=== PATIENT | female | born 1950 | race Caucasian/White ===

== ENCOUNTER 2019-02-14 15:26 | Outpatient (CLI) | payer MEDICARE ==
--- NOTE | 2019-02-14 15:59 | BD ---
DEXA bone density examination HISTORY: 68-year-old postmenopausal female for screening COMPARISON: None FINDINGS: L1--bone mineral density 1.265 g/sq cm; T score 2.5 L2--bone mineral density 1.351 g/sq cm; T score 2.9 L3--bone mineral density 1.318 g/sq cm; T score 2.1 L4--bone mineral density 1.242 g/sq cm; T score 1.6 Total L1-L4--bone mineral density 1.291 g/sq cm; T score 2.2 Left femoral neck--bone mineral density0.755; T score -0.8 Total proximal left femur--bone mineral density 0.894; T score -0.4 (1014 2 16) 09/29/2007 20 IMPRESSION: Normal bone mineralization of the lumbar spine and left femoral neck
== END 2019-02-14 15:27 | disposition home or self-care (01) ==
LOC: BICMAMMO 15:26
PROVIDERS: ATTEND Student in an Organized Health Care Education/Training Program
DX: Z13.820 Encounter for screening for osteoporosis (principal)
CPT/HCPCS: 77080

== ENCOUNTER 2019-02-19 12:42 | Outpatient (CLI) | payer MEDICARE ==
--- NOTE | 2019-02-19 13:52 | CT ---
CT OF ABDOMEN AND PELVIS: DATE: 02/19/2019. COMPARISON: 05/09/2012 CT of abdomen and pelvis. HISTORY: Abdominal bloating, abdominal distention, pelvic mass. TECHNIQUE: Axial CT imaging at 5 mm intervals from the lung bases through the pubic symphysis with intravenous a nd oral contrast. Coronal and sagittal reformatted imaging obtained. FINDINGS: The imaged lung bases appear unremarkable. No free intraperitoneal air or fluid is seen. A nonspecific soft tissue density is noted within the region of the gastric body posteriorly measurin g 1.9 cm. This could represent a polypoid lesion within the stomach or could be something ingested by the patient. The gallbladder, liver, spleen, pancreas, adrenal glands, and kidneys demonstrate no acute findings. There is a tiny hypodensity within the left lobe of the liver on image 21 measuring 7 mm, too small to characterize. A small fat-containing umbilical hernia is present. There is a nonspecific rim calcified structure within the left hemipelvis posterior to the uterus whi ch measures 1.9 cm in greatest dimension. Internal density suggesting fat. This could represent an area of fat necrosis. This does not appear to emanate from the left ovary. There is a hypodensity in the right hemipelvis demonstrating a rounded configuration measuring 2.3 cm in greatest dimension abutting the posterior aspect of the urinary bladder. Exact etiology is uncertain. This is felt to possibly represent a bladder diverticulum. There is mild diverticulosis of the sigmoid colon with no evidence for diverticulitis. There is no evidence for bowel inflammatory change or bowel obstruction. The vascular structures of the abdomen/pelvis appear patent. There is atherosclerotic calcification o f the infrarenal abdominal aorta. There is no lymphadenopathy seen within the abdomen or pelvis. There is prominent multilevel degenerative change noted within the lower lumbar spine. There are vacu um discs present at L2-3, L3-4, L4-5, and L5-S1. There is prominent bilateral facet hypertrophy at L3-4, L4-5, and L5-S1 with associated bilateral neural foraminal stenosis. No acute osseous abnormali ty. No worrisome lytic or blastic bone lesion. IMPRESSION: 1. Question polypoid lesion within the gastric body posteriorly. This could potentially be further e valuated via upper GI. Alternatively, direct visualization via endoscopy is advised to exclude a mass within the stomach. 2. Nonspecific pelvic lesions as detailed, unchanged when compared to prior CT performed 05/09/2012 CODE T Transcribed Date/Time: 02/19/2019 2:24 PM
== END 2019-02-19 12:43 | disposition home or self-care (01) ==
LOC: SCSCT 12:42
PROVIDERS: ATTEND Student in an Organized Health Care Education/Training Program
DX: R14.0 Abdominal distension (gaseous) (principal); N94.89 Other specified conditions associated with female genital organs and menstrual cycle
CPT/HCPCS: 74177; 82565

== ENCOUNTER 2019-07-09 05:58 | Day surgery (SDC) | payer MEDICARE ==
[2019-07-08 17:22] LABS: Hemoglobin 14.2 g/dL (12.0-16.0); Mean Corpuscular HGB CONC 32.9 g/dL (32.0-36.0); Mean Corpuscular Hemoglobin 29.5 pg (27.0-31.0); Mean Corpuscular Volume 89.9 fL (78.0-98.0); Mean Platelet Volume 7.3 fL (7.4-10.4); Platelet Count 271 thou/uL (130-400); RBC Distribution Width 12.3 % (11.5-14.5); White Blood Cell (WBC) Count 7.8 thou/uL (4.8-10.8)
[2019-07-09] MEDS ORDERED: Gabapentin 300 MG CAP ONE (06:23)
[2019-07-09] MEDS ORDERED: CeleCOXIB 100 MG CAP ONE (06:24)
[2019-07-09] MEDS ORDERED: Famotidine/PF 20 mg/2ml Vial ONE (06:24)
[2019-07-09] MEDS ORDERED: Fentanyl 100 MCG/2 ML VIAL ONE ×3 (06:34→14:50)
[2019-07-09] MEDS ORDERED: HYDROmorphone 0.5 MG/0.5 ML SYRINGE ONE (06:34)
[2019-07-09] MEDS ORDERED: Scopolamine 1.5 mg/72 hour Patch ONE (07:03)
[2019-07-09] MEDS ORDERED: Midazolam HCl 2 mg/2 ml Vial ONE (07:03)
[2019-07-09] MEDS ORDERED: Bupivacaine PF 0.5% 30 ML VIAL ONE (07:39)
[2019-07-09] MEDS ORDERED: Lidocaine 1% w/Epinephrine 1:100K 20 ML VIAL ONE (07:39)
[2019-07-09] MEDS ORDERED: Meperidine HCl/PF 25 MG/ML VIAL SLOW IVP PRN (09:24)
[2019-07-09] MEDS ORDERED: Promethazine HCl 25 MG/ML VIAL SLOW IVP PRN (09:24)
[2019-07-09] MEDS ORDERED: HYDROmorphone 2 MG/ML VIAL SLOW IVP PRN (09:24)
[2019-07-09] MEDS ORDERED: Lidocaine 1% PF 5 ML VIAL ONE (10:39)
[2019-07-09] MEDS ORDERED: Rocuronium Bromide 10 MG/ML (10ML VIAL) ONE (10:39)
[2019-07-09] MEDS ORDERED: Dexamethasone 20 MG/5 ML VIAL ONE (10:39)
[2019-07-09] MEDS ORDERED: Ondansetron PF 4 MG/2 ML Vial ONE (10:39)
[2019-07-09] MEDS ORDERED: Glycopyrrolate 0.2 MG/ML 5 ML SYRINGE ONE (10:39)
[2019-07-09] MEDS ORDERED: Ketorolac Tromethamine 30 MG/ML VIAL ONE (10:39)
[2019-07-09] MEDS ORDERED: PROPOFOL 200 MG/20 ML VIAL ONE (10:39)
[2019-07-09] MEDS ORDERED: Methylene Blue 50 MG/10 ML AMPUL ONE (10:48)
[2019-07-09] MEDS ORDERED: Zolpidem Tartrate 5 MG TAB PO PRN (11:36)
[2019-07-09] MEDS ORDERED: Promethazine HCl 25 MG/ML VIAL IM PRN (11:36)
[2019-07-09] MEDS ORDERED: HYDROcodone/Acetaminophen 5/325 mg Tablet PO PRN (11:36)
[2019-07-09] MEDS ORDERED: Ondansetron PF 4 MG/2 ML Vial IVP PRN (11:36)
[2019-07-09] MEDS ORDERED: Bisacodyl 10 MG SUPP PR PRN (11:36)
[2019-07-09] MEDS ORDERED: diphenhydrAMINE 25 MG CAP PO PRN (11:36)
[2019-07-09] MEDS ORDERED: Acetaminophen 500 MG TAB PO PRN (11:36)
[2019-07-09] MEDS ORDERED: Lactated Ringer's 1,000 ML IV SCH (11:45)
[2019-07-09] MEDS: Ketorolac Tromethamine 30 MG/ML VIAL IVP SCH ×2 (15:05→19:00)
[2019-07-09] MEDS: HYDROcodone/Acetaminophen 5/325 mg Tablet PO PRN ×2 (16:19→21:39)
[2019-07-09] MEDS: Docusate Calcium (SURFAK) 240 MG CAP PO SCH (21:38)
[2019-07-09] MEDS: Simethicone Chewable 80 MG TAB PO PRN (21:39)
[2019-07-10] MEDS: Ketorolac Tromethamine 30 MG/ML VIAL IVP SCH (00:24)
--- NOTE | 2019-07-10 01:09 | OP ---
DATE OF PROCEDURE: 07/09/2019 PREOPERATIVE DIAGNOSES: 1. Incomplete uterovaginal prolapse. 2. Rectocele. 3. Pelvic pain. POSTOPERATIVE DIAGNOSES: 1. Incomplete uterovaginal prolapse. 2. Rectocele. 3. Pelvic pain. 4. Bladder diverticulum. 5. Left posterior pelvic mass. ANESTHESIA: General endotracheal. STUDENT SERVICES VICE PRESIDENT SURGEON: Kelly Bah PA-C ESTIMATED BLOOD LOSS: 50 mL. IVF: 1600 mL crystalloid. URINE OUTPUT: 800 mL clear urine. COMPLICATIONS: None. DRAINS: Cisse catheter. PATHOLOGY: 1. Uterus, cervix, bilateral fallopian tubes. 2. Left posterior pelvic mass. PROCEDURES PERFORMED: Robotic-assisted total laparoscopic hysterectomy, bilateral salpingectomy, vaginal vault suspension, posterior repair, cystoscopy, and removal of left pelvic mass. FINDINGS: 6 cm uterus, normal appearing, normal fallopian tubes and ovaries bilaterally. A large bladder diverticulum off the dome of the bladder that was filled with urine. Upon entry into the abdomen, there was approximately 2 cm rounded mass in the left hemipelvis off the antimesenteric border of the rectum that contained granular yellow brownish material. Upon further dissection by General Surgery, this was not found to be intimately involved with the rectum. On cystoscopy, the bladder mucosa was within normal limits. There was a large diverticulum with approximately 1 cm opening up the dome of the bladder. This was filled with urine. The mucosa of this diverticulum was also examined and noted to be intact without any masses or lesions. The ureters were vigorously effluxing bilaterally. There was excellent hemostasis on low pressure check. DESCRIPTION OF PROCEDURE: The patient was taken to the operating room, where general anesthesia was obtained without difficulty. The patient was prepped and draped in a sterile fashion in dorsal lithotomy position. A Cisse catheter was placed in the bladder. A speculum was placed in the vagina. The anterior lip of the cervix was grasped with a single-tooth tenaculum. The cervix was then sounded to 6 cm and the cervix was progressively dilated with Juan Carlos dilators. The RAFIA manipulator was assembled with a 6 cm tip and a 4 cm colpotomizer ring. The RAFIA was inserted into the uterus and the colpotomizer ring was advanced, fit snugly around the cervix. The instruments were removed out of the vagina. Legs were placed in low lithotomy. Attention was turned to the abdomen. A mixture of 0.5% Marcaine plain and 1% lidocaine with epinephrine was infiltrated into the umbilicus and a 12 mm skin incision was made. The Veress needle was passed into the abdomen until adequate pressure was achieved and this was 0 mmHg. Pneumoperitoneum was obtained without difficulty. The Veress needle was removed. The 12 mm trocar was advanced into the abdomen and confirmed placement with robotic camera. Steep Trendelenburg was obtained. The large bladder swelling was then noted. It was very difficult to visualize any of the pelvic structures at this point. A right and left lower quadrant 8 mm robotic trocars were placed under direct visualization after infiltrating with anesthetic. An 11 mm right upper quadrant marketing assistant retail division port was placed under direct visualization after infiltrating with anesthetic. At that point, a grasper was used to push on this soft tissue mass that appeared to be fluid contained and urine was then delivered through the catheter at that time and the patient's CT was pulled out from the previous February and a 2 cm bladder diverticulum was noted on that CT. Therefore, it was felt to be almost positive that this was in fact a bladder diverticulum. As much urine was released out of the diverticulum as possible with putting pressure with a blunt grasper carefully on the bladder. The bladder was decompressed slightly and visualization was improved but still very difficult with the large volume of urine that was contained and the way it fell down into the surgical field. Therefore, decision was made to stitch this bladder diverticulum to the anterior abdominal wall. The scissors were traded out for the needle trailer tank truck driver and 2-0 Vicryl was used to stitch the bladder to the median umbilical ligament bilaterally, and the needle was removed out of the abdomen. At that time, the uterus was anteverted. The right fallopian tube was grasped and elevated. The mesosalpinx was cauterized with the fenestrated and transected with scissors on cautery and the medial portion was cauterized and transected. The fallopian tube was removed out of the abdomen. The ovaries were normal appearing bilaterally and the patient had desire to retain ovaries. The utero-ovarian was cauterized x2 with the fenestrated and incised with the scissors. The round ligament was cauterized in midportion and incised with scissors. At that point, attention was turned to the left side because visualization of that lower portion was difficult due to the floppiness of the bladder. The right fallopian tube was grasped and elevated. The mesosalpinx was cauterized with the fenestrated and transected with the scissors. The medial portion was clamped across, cauterized, incised, and removed out of the abdomen. The utero-ovarian was cauterized multiple times with the fenestrated and incised with the scissors and the round ligament was also cauterized and incised. At that point, attention was turned to the posterior cul-de-sac. The uterus was sharply anteverted and the uterosacrals were noted bilaterally. At this time, it was noted that the patient had the left cherrie-pelvic mass connected to what appeared to be the rectum and the pelvic sidewall. This was manipulated and seen to peel off the pelvic sidewall easily. However, it was ruptured and granular material that was yellow brownish color was present within. The mass was seen very calcified and soft and easily breakable. Further dissection allowed further delivery of the mass. However, at that point, it was felt uncertain whether the mass was connected to the rectum or not. Therefore, Dr. Huffman with General Surgery was called in to further evaluate the mass. He dissected out the rectosigmoid colon and was able to identify that the mass was not intimately associated with the colon and there was no injury to any bowel structures during the dissection. The mass was then removed out of the peritoneum and was placed into a bag through the 11 mm marketing assistant retail division port and then sent for final pathology. The uterosacrals were then identified bilaterally. The ureter was identified in the pelvic sidewall bilaterally and the uterosacral was grasped and pulled medially. An incision was made with the scissors just lateral on the second 2/3rd portion of the uterosacral as a releasing incision for the vaginal vault suspension. This was done bilaterally with hemostasis noted. At that point, the bladder was decompressed once again by putting pressure on the diverticulum and aspirating with the Bekah syringe. The bladder was then elevated with the marketing assistant retail division and the anterior and posterior leaves of the broad ligament were dissected out and incised, skeletonized the vessels bilaterally. The bladder flap was created very carefully, undermining with the fenestrated and incising with the scissors as long as the clear window was noted since it was felt that the bladder likely was brought up over the cervix. At that point, the peritoneum and adventitia were dissected off the uterine vessels actually by manipulating the vessels and pushing and spreading with the fenestrated on top of the colpotomizer ring until that white pubocervical fascia was visualized. Once the white pubocervical fascia was visualized, the bladder was peeled off that area using the fenestrated. There was some cautery used to incise areas that were clear to see through and this was performed across the entire bladder flap until the bladder was taken down well below the level of the colpotomizer ring. The vessels were then cauterized bilaterally. Anterior colpotomy was performed and carried laterally. The fenestrated was flipped underneath the apices laterally and cauterized for additional hemostasis. The posterior colpotomy was also performed and at that point, the uterus was placed into the vagina. Irrigation was performed of the vaginal cuff and hemostasis was achieved with the fenestrated. The scissors were traded out for the needle trailer tank truck driver and the vaginal occluder balloon was placed into the vagina as a means to maintain pneumoperitoneum. The marketing assistant retail division continued to retract the bladder anteriorly and the STRATAFIX suture was used to close the vaginal cuff in a running fashion incorporating vaginal mucosa and posterior peritoneum in each bite and run back for a second layer as well. Hemostasis was noted at that time. The needle was cut and removed out of the abdomen. 0 Ethibond was then used to perform the vaginal vault suspension, threading the suture through the releasing incision around the uterosacral ligament, and at this time, the vaginal occluder balloon was used to manipulate the vaginal cuff in an anterior fashion to highlight the uterosacral ligaments as well as the posterior cul-de-sac. The suture was secured on each side and plication was noted to be excellent. The ureters had been dissected out previously and were noted to be vermiculating in the pelvic sidewall under direct visualization. At that point, Tisseel was placed over the dissection of the bladder off the lower uterine segment and cervix as well as the vaginal cuff, and low pressure check was performed and hemostasis was noted to be excellent. Attention was then turned to the vagina. The Cisse catheter was removed. The 70-degree cystoscope was assembled and inserted into the bladder. At that time, the opening to the bladder diverticulum was noted. The bladder mucosa was thoroughly inspected and no inadvertent injury, lesions, or masses were present. The cystoscope was then placed through the diverticulum opening and the remainder of the bladder mucosa was examined. During this time, the marketing assistant retail division was watching abdominally through the laparoscope to ensure that no spillage of saline occurred as the bladder was distended. None of this occurred and every thing was dry. The laparoscope was then removed. Pneumoperitoneum was released and all ports were removed out of the abdomen. The ureteral orifice was then visualized bilaterally and noted to have vigorous efflux in a short period of time. The cystoscope was removed and the Cisse catheter was replaced. The Marshall was then placed into the vagina. The posterior vaginal opening was grasped with Allis clamps at 5 and 7. The posterior vaginal mucosa was infiltrated with a mixture of 0.5% Marcaine plain and 1% lidocaine with epi. An 11 blade was used to incise at the introitus on the posterior wall and the Metzenbaum was used to undermine the vaginal mucosa and incise the vaginal mucosa in the midline. Allis clamps were placed on bilateral edges of the incision and the rectovaginal fascia was dissected off the vaginal mucosa with the Metzenbaum followed by fluffed out Ray-Delmi. Hemostasis was then achieved with the Bovie and this was taken up to the top of the vaginal cuff. 2-0 Vicryl was then used to plicate the rectovaginal fascia in the midline through the length of the incision with excellent reapproximation. An extra glove was then placed on the right hand. The rectum was checked and noted to have no suture material within and that glove was then removed and the incision was irrigated. A 2-0 Vicryl was then used to close the posterior vaginal incision in a running locking fashion with excellent hemostasis noted. Vaginal packing with a moist Kerlix was then placed in the vagina. All other instruments were removed out of the vagina. The abdominal incisions were then closed. The fascia of the camera port was closed with 0 Vicryl in a [id number] fashion. Skin was closed with 4-0 Monocryl in subcuticular fashion. Dermabond was applied. The patient tolerated the procedure well. Sponge, lap, and needle counts were correct x2. The patient was taken to recovery room in stable condition. The patient received Ancef 2 g and was redosed due to operative time of 4 hours. Job ID: [id number]
[2019-07-10 06:52] LABS: Hemoglobin 12.4 g/dL (12.0-16.0); Mean Corpuscular HGB CONC 33.2 g/dL (32.0-36.0); Mean Corpuscular Hemoglobin 30.3 pg (27.0-31.0); Mean Corpuscular Volume 91.2 fL (78.0-98.0); Mean Platelet Volume 7.5 fL (7.4-10.4); Platelet Count 235 thou/uL (130-400); RBC Distribution Width 12.3 % (11.5-14.5); Red Blood Cell (RBC) Count 4.08 mill/uL (4.20-5.40); White Blood Cell (WBC) Count 12.4 thou/uL (4.8-10.8)
[2019-07-10] MEDS: Ibuprofen 800 MG TAB PO SCH ×2 (06:59→13:55)
[2019-07-10] MEDS: HYDROcodone/Acetaminophen 5/325 mg Tablet PO PRN ×2 (07:00→12:54)
[2019-07-10] MEDS: Docusate Calcium (SURFAK) 240 MG CAP PO SCH (10:26)
[2019-07-10 11:43] VITALS: BP 129/66; TEMP 98.1
[2019-07-10] MEDS: Simethicone Chewable 80 MG TAB PO PRN (12:53)
== END 2019-07-10 14:23 | disposition home or self-care (01) ==
LOC: SDC 05:58 → 3SE 15:27 → SDC 07-10 14:23
PROVIDERS: ATTEND Student in an Organized Health Care Education/Training Program
PROC: 0UT94ZZ Resection of Uterus, Percutaneous Endoscopic Approach (ICD-10-PCS; principal; 2019-07-09)
PROC: 0UT74ZZ Resection of Bilateral Fallopian Tubes, Percutaneous Endoscopic Approach (ICD-10-PCS; 2019-07-09)
PROC: 0UBF4ZZ Excision of Cul-de-sac, Percutaneous Endoscopic Approach (ICD-10-PCS; 2019-07-09)
PROC: 0JQC0ZZ Repair Pelvic Region Subcutaneous Tissue and Fascia, Open Approach (ICD-10-PCS; 2019-07-09)
DX: N81.2 Incomplete uterovaginal prolapse (principal); N94.89 Other specified conditions associated with female genital organs and menstrual cycle; N88.8 Other specified noninflammatory disorders of cervix uteri; N80.0 Endometriosis of uterus; N32.3 Diverticulum of bladder; Z79.899 Other long term (current) drug therapy
CPT/HCPCS: 57250; 58571; 58662; 85027 ×2; 86850; 86900; 86901; 88304; 88307; Q9968; 36415; J0690; J1100; J1170; J1885; J2001; J2250; J2405; J2704; J3010; S0020; S0028

== ENCOUNTER 2019-11-11 11:19 | Outpatient (CLI) | payer MEDICARE ==
--- NOTE | 2019-11-11 15:15 | CT ---
CT ABDOMEN AND PELVIS WITH ORAL AND IV CONTRAST: Date: 11/11/2019 HISTORY: Abdominal pain, left lower quadrant pain. COMPARISON: 02/19/2019. FINDINGS: The lung bases are clear. No calcified gallstones are seen. The 1.0 cm low density lesion in the ante rior aspect of the left lobe of the liver is stable. The spleen, pancreas, adrenal glands, and kidney s are also unremarkable. No free air, free fluid, or lymphadenopathy seen in the abdomen or pelvis. The small bowel loops are not abnormally dilated. A normal appearing appendix is present. There is si gmoid diverticulosis without diverticulitis. The right-sided posterior bladder wall diverticulum is a gain seen. There are vascular calcifications without evidence of aneurysmal dilatation of the abdominal aorta. T here are degenerative changes in the spine. Minimal anterolisthesis of L4 over L5 is stable. IMPRESSION: 1. Sigmoid diverticulosis without diverticulitis. 2. Stable urinary bladder diverticulum. 3. Stable low density lesion in the liver. POS: JENNIFERA
== END 2019-11-11 11:20 | disposition home or self-care (01) ==
LOC: SCSCT 11:19
PROVIDERS: ATTEND Internal Medicine
DX: R10.32 Left lower quadrant pain (principal); R10.13 Epigastric pain; R93.5 Abnormal findings on diagnostic imaging of other abdominal regions, including retroperitoneum; K57.30 Diverticulosis of large intestine without perforation or abscess without bleeding; N32.3 Diverticulum of bladder; K76.9 Liver disease, unspecified
CPT/HCPCS: 74177; 82565

== ENCOUNTER 2020-05-05 12:08 | Outpatient (CLI) | payer MEDICARE ==
--- NOTE | 2020-05-05 13:57 | RAD ---
PA AND LATERAL VIEWS OF THE CHEST: 05/05/20 HISTORY: Cough, congestion. FINDINGS: The heart size is normal. The lungs are well expanded without lobar consolidation, pneumothoraces, or pleural effusions. There are mild degenerative changes in the spine. IMPRESSION: No radiographic evidence of acute cardiopulmonary process. POS: AH
== END 2020-05-05 12:09 | disposition home or self-care (01) ==
LOC: BICRAD 12:08
PROVIDERS: ATTEND Student in an Organized Health Care Education/Training Program
DX: R05 Cough (principal)
CPT/HCPCS: 71046

== ENCOUNTER 2020-05-14 13:57 | Outpatient (CLI) | payer MEDICARE ==
[~2020-05-14 13:57] MED LIST: Iopamidol 370 76% 100 ML VIAL ONE
--- NOTE | 2020-05-14 14:58 | CT ---
EXAM: CT chest with IV contrast PROVIDED CLINICAL HISTORY: Cough COMPARISON: None FINDINGS: Vascular calcification including coronary calcium is demonstrated. The heart, pericardium and great v essels demonstrate an otherwise unremarkable CT appearance. The lungs are free of significant opacity. No pleural fluid or pneumothorax apparent. No evidence for thoracic lymph node enlargement. The airway appears patent and of normal caliber. The visualized portions of the upper abdomen demonstrate no acute findings. The osseous structures demonstrate no concerning lytic or blastic lesions. Degenerative changes are s een involving the thoracic spine. IMPRESSION: 1. No evidence for an acute process. 2. Atherosclerosis including coronary calcium.
--- NOTE | 2020-05-14 15:34 | ULT ---
RIGHT BREAST ULTRASOUND: HISTORY: Palpable mass in the 2 o'clock position of the right breast. FINDINGS: Correlation is made with the mammogram of the same date. Sonographic evaluation of the region of palpable concern at the 2 o'clock position of the right breas t demonstrates a cystic mass with mural nodular densities arising from the dependent wall. No flow is demonstrated. IMPRESSION: BIRADS category 4 - suspicious abnormality. Ultrasound-guided biopsy is recommended. Discussed in person with the patient at 3:23 p.m. CODE CR POS: OFF
--- NOTE | 2020-05-14 15:34 | MMO ---
Bilateral MAMMO Bilat Diag [facility]. CLINICAL HISTORY: Patient is 70 years old and is seen for diagnostic exam and lump or thickening in the upper-inner region of the right breast. The patient has the following family history of breast cancer: daughter, at age 40, malignant (generic). The patient has no personal history of cancer. The patient has a history of left Excisional Biopsy in 1980S - benign. VIEWS: The views performed were: bilateral craniocaudal with tomosynthesis; bilateral mediolateral oblique with tomosynthesis; and bilateral mediolateral with tomosynthesis. FILMS COMPARED: The present examination has been compared to prior imaging studies performed at [facility] on 02/01/2019, and at [facility] on 05/14/2020. This study has been interpreted with the assistance of computer-aided detection. MAMMOGRAM FINDINGS: There are scattered fibroglandular densities. Benign calcifications are noted bilaterally. There is a complex cystic mass at the site of palpable concern in the right breast (2:00) In the left breast, there are no suspicious masses, calcifications or areas of architectural distortion. IMPRESSION: FINDING IN THE RIGHT BREAST IS SUSPICIOUS. AN ULTRASOUND-GUIDED BREAST BIOPSY IS RECOMMENDED. THE RESULTS OF THIS EXAM WERE SENT TO THE PATIENT. ACR BI-RADS Category 4 - Suspicious abnormality - biopsy should be considered D/W pt in person @ 1523 hrs MAMMOGRAPHY NOTE: 1. A negative mammogram report should not delay a biopsy if a dominant of clinically suspicious mass is present. 2. Approximately 10% to 15% of breast cancers are not detected by mammography. 3. Adenosis and dense breasts may obscure an underlying neoplasm. Reported by: BEBO MCKEON MD Electonically Signed: [id number]
== END 2020-05-14 13:58 | disposition home or self-care (01) ==
LOC: BICCT 13:57
PROVIDERS: ATTEND Student in an Organized Health Care Education/Training Program
DX: N63.10 Unspecified lump in the right breast, unspecified quadrant (principal); R05 Cough; I25.10 Atherosclerotic heart disease of native coronary artery without angina pectoris; R92.8 Other abnormal and inconclusive findings on diagnostic imaging of breast
CPT/HCPCS: 71260; 76642; 77066; G0279; Q9967

== ENCOUNTER → 2020-05-26 | Day surgery (SDC) | payer MEDICARE | LOC: BICULT 12:44 | PROVIDERS: ATTEND Student in an Organized Health Care Education/Training Program | DX: N63.10 Unspecified lump in the right breast, unspecified quadrant (principal); Z53.9 Procedure and treatment not carried out, unspecified reason ==

== ENCOUNTER 2021-03-23 15:47 | Outpatient (CLI) | payer MEDICARE | END 2021-03-23 15:48 | disposition home or self-care (01) | LOC: SCSRAD 15:47 | PROVIDERS: ATTEND Nurse Practitioner Family | DX: R05.9 Cough, unspecified (principal); R06.2 Wheezing | CPT/HCPCS: 71046 ==

== ENCOUNTER 2021-05-26 16:30 | Outpatient (CLI) | payer MEDICARE | END 2021-05-26 16:31 | disposition home or self-care (01) | LOC: SCSRAD 16:30 | PROVIDERS: ATTEND Internal Medicine | DX: M54.31 Sciatica, right side (principal); M47.816 Spondylosis without myelopathy or radiculopathy, lumbar region | CPT/HCPCS: 72100 ==

== ENCOUNTER 2021-10-31 20:08 | Inpatient (IN) | payer MEDICARE ==
[2021-10-31 20:34] VITALS: BMI 30.4
[2021-10-31] MEDS ORDERED: Ondansetron PF 4 MG/2 ML Vial IVP PRN (20:45)
[2021-10-31] MEDS ORDERED: Sodium Chloride 0.9% 1,000 ML IV SCH (20:45)
[2021-10-31] MEDS ORDERED: Ondansetron ODT 4 MG TAB SL PRN (20:45)
[2021-10-31] MEDS: methylPREDNISolone Sod Succ/PF 125 MG/2 ML VIAL IVP SCH (21:08)
[2021-10-31] MEDS: Acetaminophen 325 MG TAB PO PRN (22:57)
[2021-10-31] MEDS ORDERED: cefTRIAXone\\ROCEPHIN 1 GM in Sodium Chloride 0.9% 100 ML IVPB SCH (23:00)
[2021-10-31] MEDS ORDERED: Azithromycin 500 MG in Sodium Chloride 0.9% 250 ML 250 ML IVPB SCH (23:59)
[2021-11-01] MEDS: Acetaminophen 325 MG TAB PO PRN (03:35)
[2021-11-01] MEDS: methylPREDNISolone Sod Succ/PF 125 MG/2 ML VIAL IVP SCH (03:40)
[2021-11-01] MEDS ORDERED: Ibuprofen 200 MG TAB PO SCH (07:00)
[2021-11-01] MEDS: Enoxaparin Sodium 40 MG/0.4 ML SYRINGE SC SCH (09:06)
[2021-11-01] MEDS ORDERED: Acetaminophen 325 MG TAB PO PRN (09:30)
[2021-11-01] MEDS ORDERED: Albuterol Sulfate 2.5 mg/3 ml Neb NEB PRN (11:19)
[2021-11-01] MEDS ORDERED: HYDROcodone/Acetaminophen 5/325 mg Tablet PO PRN (11:22)
[2021-11-01] MEDS: Albuterol Sulfate 2.5 mg/3 ml Neb NEB SCH ×2 (13:08→18:51)
[2021-11-01] MEDS ORDERED: Iopamidol-370 76% 500 ML 1 ML ONE (13:48)
[2021-11-01] MEDS: traMADol HCl 50 MG TAB PO PRN (14:43)
[2021-11-01] MEDS: Budesonide 0.5 MG/2 ML NEB NEB SCH ×2 (14:54→18:52)
[2021-11-01] MEDS ORDERED: Budesonide 0.25 MG/2 ML NEB INH SCH (18:30)
[2021-11-01] MEDS: Montelukast Sodium 10 mg Tablet PO SCH (20:02)
[2021-11-01] MEDS ORDERED: Montelukast Sodium 10 mg Tablet PO SCH (21:00)
[2021-11-01] MEDS ORDERED: hydrALAZINE 20 MG/ML VIAL SLOW IVP PRN (21:22)
[2021-11-02] MEDS: Albuterol Sulfate 2.5 mg/3 ml Neb NEB SCH ×2 (02:13→06:18)
[2021-11-02] MEDS: Budesonide 0.5 MG/2 ML NEB NEB SCH ×4 (06:19→18:40)
[2021-11-02] MEDS: Enoxaparin Sodium 40 MG/0.4 ML SYRINGE SC SCH (08:12)
[2021-11-02] MEDS: traMADol HCl 50 MG TAB PO PRN (19:16)
[2021-11-02] MEDS: Montelukast Sodium 10 mg Tablet PO SCH (21:00)
[2021-11-03] MEDS: Budesonide 0.5 MG/2 ML NEB NEB SCH ×3 (07:06→13:36)
[2021-11-03] MEDS: Enoxaparin Sodium 40 MG/0.4 ML SYRINGE SC SCH (08:42)
[2021-11-03 08:45] VITALS: BP 146/63; TEMP 98
== END 2021-11-03 18:31 | disposition home or self-care (01) | DRG 189 ==
LOC: 2SE 20:08 → T4-A 20:15
PROVIDERS: ADMIT Hospitalist; ATTEND Hospitalist
DX: J96.01 Acute respiratory failure with hypoxia (principal); J45.901 Unspecified asthma with (acute) exacerbation; J45.902 Unspecified asthma with status asthmaticus; Z20.822 Contact with and (suspected) exposure to COVID-19; Z79.899 Other long term (current) drug therapy; Z90.710 Acquired absence of both cervix and uterus; Z98.890 Other specified postprocedural states; Z82.49 Family history of ischemic heart disease and other diseases of the circulatory system
CPT/HCPCS: 71275; 94640; J0360; J0456; J0696; J2930; J3490; J7050; J7611; J7620; J7626; Q9967

== ENCOUNTER 2023-10-23 10:38 | Outpatient (CLI) | payer MEDICARE | END 2023-10-23 10:39 | disposition home or self-care (01) | LOC: RAD 10:38 | PROVIDERS: ATTEND Internal Medicine Critical Care Medicine | DX: R06.00 Dyspnea, unspecified (principal) | CPT/HCPCS: 71046 ==

== ENCOUNTER 2025-03-18 14:14 | Outpatient (CLI) | payer MEDICARE | END 2025-03-18 14:15 | disposition home or self-care (01) | LOC: RAD 14:14 | PROVIDERS: ATTEND Internal Medicine Critical Care Medicine | DX: R06.00 Dyspnea, unspecified (principal) | CPT/HCPCS: 71046 ==